=== PATIENT | female | born 1950 | race Caucasian/White ===

== ENCOUNTER 2024-04-27 09:50 | Inpatient (IN) | payer MEDICARE, OTHER ==
[~2024-04-27] VITALS: Ht 177.8 cm
[2024-04-27] VITALS (10 sets, daily range): BP systolic 100–134; BP diastolic 70–90
[2024-04-27] MEDS ORDERED: ASPIRIN 81 MG CHEW PO ONE (10:15)
[2024-04-27 10:21] LABS: BASOPHILS 0.4 % (0-2); EOSINOPHILS 0.6 % (0-6); HEMATOCRIT 40.7 % (35.0-50.0); HEMOGLOBIN 13.4 g/dL (12.0-18.0); LYMPHOCYTES 16.2 % (24-44); MCH 27.8 (27-36); MCHC 32.8 g/dl (30-36); MCV 84.6 fl (81-99); MONOCYTES 7.7 % (0-12); NEUTROPHILS 75.1 % (39-80); PLATELET COUNT 183 K/uL (140-440); RBC 4.81 M/ul (4.3-5.7); RDW 15.2 (10.5-15.0)
[2024-04-27 10:44] LABS: ALBUMIN/GLOBULIN RATIO 0.7 (1.1-2.4); ANION GAP 16.1 (7-21); BILIRUBIN, TOTAL 0.7 ng/dL (0.2-1.0); BUN/CREATININE RATIO 14.86 (6.0-28.6); CALCIUM 9.6 mg/dL (8.5-10.1); CREATININE, SERUM 1.48 mg/dL (0.55-1.02); POTASSIUM 4.1 mmol/L (3.5-5.1); PROTEIN, TOTAL 7.3 g/dL (6.4-8.2)
[2024-04-27] MEDS ORDERED: FUROSEMIDE 20 MG/2 ML VIAL IV ONE (11:45)
[2024-04-27 13:32] LABS: INR 1.08 (0.80-1.30); PARTIAL THROMBOPLASTIN TIME 39.2 Sec (22.9-41.3); PROTIME 13.3 Sec (11.2-14.2)
[2024-04-27] MEDS ORDERED: HEParin SOD (PORCINE) 5,000 UNIT/ML SYR IV ONE (14:00)
[2024-04-27] MEDS ORDERED: HEParin SOD (PORCINE) 5,000 UNIT/ML SYR IV PRN ×3 (14:00)
[2024-04-27] MEDS ORDERED: HEPARIN SOD,PORK IN 0.45% NACL 500 ML IV SCH (14:00)
[2024-04-27] MEDS ORDERED: ACETAMINOPHEN 325 MG TAB PO PRN (14:45)
[2024-04-27] MEDS ORDERED: MAGNESIUM HYDROXIDE/AL HYDROX 30 ML CUP PO PRN (14:45)
[2024-04-27] MEDS ORDERED: ondansetron HCL 4 MG/2 ML VIAL IV PRN (14:45)
--- NOTE | 2024-04-27 15:00 | NUR ---
PT ARRIVED FROM ED VIA STREACHER, TRANSFERED SELFED TO BED FROM [facility], WILL BE BACK LATER.
[2024-04-27] MEDS ORDERED: TUMS200 MG PO (15:17)
--- NOTE | 2024-04-27 16:21 | NUR ---
PT UP TO THE BATHROOM, VOIDED AND WAS SOB WITH ACTIVITY BUT SPO2 REMAINED IN THE 95%, BUT HR WENT UP TO THE 100'S. BACK TO BED AND CALL LIGHT IN REACH, SIDE RAILS UP TIMES 3
--- NOTE | 2024-04-27 19:30 | NUR ---
RECEIV ED REPORT FROM DAY SHIFT RNSun EUGENE IS RESTING IN BED WATCHING TV. PATIENT DENIES ANY NEEDS. CALL LIGHT IN REACH.
[2024-04-27] MEDS ORDERED: CALCIUM CARBONATE 500 MG CHEW PO PRN (20:45)
--- NOTE | 2024-04-27 20:52 | NUR ---
PATIENT IS RESTING IN BED WATCHING TV. PATIENT DENIES ANY PAIN OR SOB. PATIENT ASSESMENT COMPLETED. PATIENT REPORTS "HEARTBURN FROM THE [place]OM[place]O SOUP", PRN MEDICATION GIVEN PER ORDER. PATIENT IS ON RA. PATIENT DENIES ANY FURTHER NEEDS. CALL LIGHT IN REACH. IV INFUSING PER ORDER. LAB IN ROOM TO DRAW BLOOD.
--- NOTE | 2024-04-27 21:32 | NUR ---
RECEIVED CALL FROM LAB WITH INCREASED PTT TIME. PATIENTS DRIP STOPPED PER PROTOCOL. PATIENT IS RESTING IN BED WATCHING TV. PATIENT DENIES ANY PAIN OR SOB. PATIENT DENIES ANY NEEDS CALL LIGHT IN REACH.
--- NOTE | 2024-04-27 22:47 | NUR ---
PATIENTS IV HEP DRIP RESTARTED PER PROTOCOL. PATIENT IS RESTING IN BED AND DENIES ANY NEEDS. CALL LIGHT IN REACH.
[2024-04-28] VITALS (17 sets, daily range): BP systolic 108–136; BP diastolic 50–90
--- NOTE | 2024-04-28 00:01 | NUR ---
PATIENT ASSISTED TO REPOSITION IN BED. PATIENT DENIES ANY PAIN OR SOB. PATIENT DENIES ANY NEEDS. PATIENT DENIES ANY PAIN OR SOB. CALL LIGHT IN REACH.
--- NOTE | 2024-04-28 01:25 | NUR ---
PATIENT ASSISTED TO THE BR A SBA. PATIENT ABLE TO VOID. PATIENT IS BACK IN BED RESTING. PATIENT DENIES ANY SOB OR PAIN. PATIENT IS BACK IN BED RESTING. NO FURTHER NEEDS NOTED. CALL LIGHT IN REACH.
--- NOTE | 2024-04-28 03:19 | NUR ---
PATIENT IS RESTING IN BED WITH EYES CLOSED, RR 21. CALL LIGHT IN REACH. NAD NOTED. IV INFUSING PER ORDER.
--- NOTE | 2024-04-28 04:35 | NUR ---
LAB IN ROOM. PATIENT IS RESTING IN BED. PATIENT DENIES ANY PAIN OR SOB. PATIENTS ASSEMENT COMPLETED. PATIENT REMAINS ON RA. PATIENT DENIES ANY FURTHER NEEDS. CALL LIGHT IN REACH. HEPARIN INFUSING PER ORDER.
[2024-04-28 04:51] LABS: BASOPHILS 0.6 % (0-2); EOSINOPHILS 0.9 % (0-6); HEMATOCRIT 38.5 % (35.0-50.0); HEMOGLOBIN 12.7 g/dL (12.0-18.0); LYMPHOCYTES 24.6 % (24-44); MCH 27.6 (27-36); MCHC 33.1 g/dl (30-36); MCV 83.4 fl (81-99); NEUTROPHILS 64.9 % (39-80); PLATELET COUNT 169 K/uL (140-440); RBC 4.62 M/ul (4.3-5.7); RDW 15.2 (10.5-15.0)
[2024-04-28 05:08] LABS: ANION GAP 14.1 (7-21); BUN/CREATININE RATIO 16.4 (6.0-28.6); CALCIUM 8.9 mg/dL (8.5-10.1); CREATININE, SERUM 1.28 mg/dL (0.55-1.02); POTASSIUM 4.1 mmol/L (3.5-5.1)
--- NOTE | 2024-04-28 05:12 | NUR ---
PATIENTS PTT BACK AND NO ADJUSMENTS MADE TO HEPARIN INFUSION PER ORDER.
--- NOTE | 2024-04-28 06:26 | NUR ---
PATIENT IS RESTING IN BED WITH EYES CLOSED, RR 22. NAD NOTED. CALL LIGHT IN REACH. IV INFUSING PER ORDER.
--- NOTE | 2024-04-28 06:48 | NUR ---
UR CLINICAL REVIEW: 2MN [facility]- [facility] INPT FOR PE WITH CARDIAC STRAIN MEDICARE INPT 04/27/24 @ 1437 ORDER MATCHES REG NO AUTH REQUIRED PER MEDICARE RULES PLAN TO DC TO HOME WHEN MEDICALLY STABLE.
[2024-04-28] MEDS ORDERED: CALCIUM CARBONATE 500 MG CHEW PO SCH (08:00)
[2024-04-28] MEDS ORDERED: APIXABAN 5 MG TAB PO SCH (09:50)
--- NOTE | 2024-04-28 10:41 | NUR ---
into see pt transfer orders received. Heprin drip turned off, eliqus 5mg started po at this time. pt up in the chair and family into visit. pt placed on tele #4
--- NOTE | 2024-04-28 10:53 | NUR ---
PT TRASNFERED TO M/S RM 110 VIA CHAIR, ALL PERSONAL BELONGINGS TAKEN WITH PT AND HER FAMILY. REPORT GIVEN AND ALL QUESTIONS ANSWERED.
--- NOTE | 2024-04-28 10:55 | NUR ---
PATIENT TO MED SURG VIA CHAIR. PATIENT IS ON ROOM AIR, 100% VITALS ARE STABLE. AND SON ARE IN ROOM. TELE #6 IS ON, NSR WITH HR 88-90. PATIENT DENIES PAIN, DENIES NAUSEA. NO OTHER NEEDS AT THIS TIME.
--- NOTE | 2024-04-28 10:58 | NUR ---
PT IS ON TELE # 6 AND NOT 4
--- NOTE | 2024-04-28 11:51 | NUR ---
PT ARRIVED FROM CCU, REPORT RECEIVED FROM CHARGE NURSE. PT SITTING UP IN CHAIR. PT C/O DULL PAIN TO (L) CALF, PLACED LEG ON PILLOW TO PROVIDE MORE COMFORT THE CHAIR WAS SLIGHTLY HARD AND DISCOMFORTING FOR PATIENT. OTHERWISE, PATIENT DENIES ANY NEEDS. FAMILY PRESENT AT BEDSIDE. DENIES SOB WHILE AT REST, DOES EXPRESS SHE GETS SHORT OF BREATH WITH EXERTION TOWARDS THE END OF ACTIVITY. PT REQUESTING TO USE BATHROOM, STEADY ON HER FEET. ALLOWED TO MOVE INDEPENDENTLY IN THE ROOM. CALL LIGHT WITHIN REACH, DENIES FURTHER NEEDS AT THIS TIME.
[2024-04-28] MEDS ORDERED: PHARMACY RENAL DOSE ADJUSTMENT 1 DOSE MISC PO SCH (12:00)
--- NOTE | 2024-04-28 13:39 | NUR ---
PT RESTING IN BED, WATCHING TV. VS STABLE. PT C/O HEARTBURN, PRN TUMS GIVEN - SEE MAR. PT DENIES ANY OTHER NEEDS AT THIS TIME, CALL LIGHT WITHIN REACH.
--- NOTE | 2024-04-28 15:51 | NUR ---
PT RESTING IN BED, WATCHING TV. FAMILY JUST ARRIVED AT BEDSIDE. PT STATES SHE THOUGHT SHE WAS GOING TO HAVE BM, JUST PASSING FLATUS. OFFERED MIRALAX TO HELP WITH BM, SHE DECLINED AT THIS TIME AND WILL ASK LATER IF UNSUCCESSFUL ATTEMPTS. DENIES ANY FURTHER NEEDS AT THIS TIME. CALL LIGHT WITHIN REACH.
--- NOTE | 2024-04-28 17:05 | NUR ---
REPORT REC'D FROM DANIEL CHEATHAM. PT RESTING COMFORTABLY IN BED, FAMILY AT BEDSIDE. TELE # 6 IN USE, SR 90'S. SIDERAILS UP X 2, CALL LEONE IN REACH, BED LOW POSITION AND LOCKED. PT INSTRUCTED TO CALL FOR ASSISTANCE PRN.
--- NOTE | 2024-04-28 18:35 | NUR ---
PATIENT IN BED WATCHING TV AT THIS TIME. VITALS AND I&O'S DONE AND CHARTED. CALL LIGHT IN REACH. NO FURTHER NEEDS AT THIS TIME.
--- NOTE | 2024-04-28 18:57 | NUR ---
PT RESTING T/O SHIFT. NO C/O VOICED. REPORT GIVEN TO YVONNE.
--- NOTE | 2024-04-28 19:22 | NUR ---
Received report from DANIEL Moss. Pt sitting at EOB, denies any further needs at this time.
[2024-04-28] MEDS ORDERED: CALCIUM CARBONATE 500 MG CHEW PO PRN ×2 (19:45→20:30)
--- NOTE | 2024-04-28 20:00 | NUR ---
PT SITTING EOB. VSS. DENIES PAIN. CALLS APPROPRIATELY FOR ASSIST. LSC, DENIES SOB BUT SOME LEMA WHEN GETTING TO EOB. ON RA. HRR, TELE IN PLACE. BTA. PT C/O HEARTBURN-PRN TUMS ADMINISTERED PER EMAR. LBM 04/27. VOIDS WNL. LLE W/ MIMIMAL PAIN REPORTED W/ DORSIFLEXION. NO EDEMA. NO N/T. LAC SL WNL. FRESH ICE WATER PROVIDED. CALL LIGHT WITHIN REACH.
--- NOTE | 2024-04-28 21:03 | NUR ---
pt UP TO THE BR VIA SBA. pt BACK TO BED WITH LIGHTS OFF. pt DENIES ANY OTHER NEEDS AT THIS TIME. CALL LIGHT WITHIN REACH.
--- NOTE | 2024-04-28 23:17 | NUR ---
PT SLEEPING SOUNDLY ON LEFT SIDE. APPEARS COMFORTABLE.
[2024-04-29] VITALS (10 sets, daily range): BP systolic 97–146; BP diastolic 55–91
--- NOTE | 2024-04-29 01:15 | NUR ---
PT SLEEPING SOUNDLY. APPEARS COMFORTABLE.
--- NOTE | 2024-04-29 02:59 | NUR ---
PT AWAKE, SLEEPING BETWEEN CARES. DENIES NEEDS.
--- NOTE | 2024-04-29 05:30 | NUR ---
[employer] OBTAINED VITALS AND I&O. PT STATES NO NEEDS AT THIS TIME. CALL LIGHT WITHIN REACH.
--- NOTE | 2024-04-29 06:16 | NUR ---
PT ASSISTED TO BR, SBA. FRESH ICE WATER PROVIDED. NO FURTHER NEEDS.
--- NOTE | 2024-04-29 08:27 | NUR ---
ALERT AND ORIENTED IN RECLINER, EATING BREAKFAST. STATES SHE LIVES IN SINGLE LEVEL HOME WITH HER , TANA. STEPS TO GET INSIDE, BUT STEPS IN HER GARAGE HAVE A HAND RAIL. SHE STATES SHE HAS NO DME AT HOME. SHE IS ABLE TO DRIVE WITHOUT ISSUES. STATES SHE HAS NO FINANCIAL CONCERNS. SHE HAS NO CM NEEDS AT THIS TIME. SHE IS PLANNING TO RETURN HOME WHEN MEDICALLY STABLE.
--- NOTE | 2024-04-29 08:30 | NUR ---
PT RESTING IN BED, BREAKFAST TRAY DELIVERED. PT INDEPENDENT GETTING OUT OF BED AND UP IN CHAIR. DENIES NEED TO USE BATHROOM AT THIS TIME. TRAY SETUP AND PT EATING. ELIQUIS GIVEN THIS MORNING - SEE JUL. DENIES SOB WHILE RESTING, INCREASED SOB WITH EXERTION BUT NO SIGNIFICANT AND PT STATES IT IS FEELING BETTER EACH DAY. CALL LIGHT WITHIN REACH, PT REQUESTING EDUCATION ON ELIQUIS AND FOODS TO AVOID, WELL MEDICATION INTERACTIONS. WILL FOLLOW-UP WITH PHARMACY. NO FURTHER NEEDS AT THIS TIME. PT LEFT UP IN CHAIR TO EAT BREAKFAST.
--- NOTE | 2024-04-29 11:16 | NUR ---
PT IS IN THE ROOM, FAMILY PRESENT AT BEDSIDE. DENIES ANY NEEDS AT THIS TIME, CALL LIGHT WITHIN REACH.
--- NOTE | 2024-04-29 18:07 | NUR ---
PT WAS UP WITH CAREGIVERS SHE STATES, AMBULATED THE HALLWAY DOWN/BACK, WHE SHE GOT BACK TO HER ROOM SHE WAS SURPRISED SHE WAS NOT TOO SOB. SITTING ON EDGE OF BED AT THIS TIME, HAVING DINNER. DENIES PAIN. FRESH ICE WATER PROVIDED. DENIES ANY FURTHER NEEDS. CALL LIGHT WITHIN REACH.
--- NOTE | 2024-04-29 19:32 | NUR ---
Report received from DANIEL Mcdonough. Pt sitting EOB, reports the start of some heartburn. Pt states she will call if PRN Tums are needed.
--- NOTE | 2024-04-29 20:00 | NUR ---
PT SITTING EOB, STILL W/ C/O HEARTBURN. PRN TUMS GIVEN PER EMAR. VS OBTAINED. DENIES PAIN. LSC, DIM TO RIGHT BASE. DENIES SOB AT REST BUT ENDORSES LEMA. HRR. TELEMETRY IN PLACE. 1+ BLE EDEMA. MINIMAL CALF PAIN W/ LLE DORSIFLEXION. BTA. LBM 04/29. VOIDS WNL. AMBULATES TO BR W/ SBA, GAIT STEADY. CALLS APPROPRIATELY FOR ASSIST. SUNG MORRIS WNL.
--- NOTE | 2024-04-29 20:56 | NUR ---
call light answered, pt up to void in bathroom. voided 200mls and back in bed. call light in reach.
--- NOTE | 2024-04-29 22:28 | NUR ---
PT SLEEPING SOUNDLY, APPEARS COMFORTABLE. CALL LIGHT WITHIN REACH.
--- NOTE | 2024-04-30 01:02 | NUR ---
PT APPEARS ASLEEP ON LEFT SIDE. CALL LIGHT WITHIN REACH.
[2024-04-30 01:31] VITALS: BP 123/73
--- NOTE | 2024-04-30 01:32 | NUR ---
MEDICAL ORDERLY OBTAINED VITALS AND I&O. PT STATES NO NEEDS AT THIS TIME. CALL LIGHT WITHIN REACH.
[2024-04-30 02:00] VITALS: BP 123/73
--- NOTE | 2024-04-30 02:38 | NUR ---
PT SLEEPING SOUNDLY, APPEARS COMFORTABLE. CALL LIGHT WITHIN REACH.
--- NOTE | 2024-04-30 04:20 | NUR ---
PT SLEEPING SOUNDLY. CALL LIGHT WITHIN REACH.
[2024-04-30 05:16] VITALS: BP 117/69
[2024-04-30 05:29] VITALS: BP 117/69
--- NOTE | 2024-04-30 05:58 | NUR ---
PT AWAKE, STATES SLEPT WELL OVERNIGHT. FRESH ICE WATER PROVIDED. CALL LIGHT WITHIN REACH.
[2024-04-30] MEDS ORDERED: ELIQUIS5 M1 PO (07:56)
--- NOTE | 2024-04-30 08:02 | NUR ---
PT SITTING UP ON EDGE OF BED, DENIES SOB AT THIS TIME. MEDICATIONS GIVEN - SEE MAR. PT FEELING GREAT, DC TELEMETRY THIS MORNING, IV SITE REMOVED. PT ORDERED BREAKFAST, STATES WILL BE HERE AROUND 9-9:30 FOR DISCHARGE. ALL PT CARE NEEDS MET, CALL LIGHT WITHIN REACH. DENIES ANY FURTHER NEEDS AT THIS TIME.
[2024-04-30 08:49] VITALS: BP 139/75
--- NOTE | 2024-04-30 09:23 | NUR ---
UP IN RECLINER. DISCUSSED DC TO HOME TODAY. DENIES CM NEEDS AGAIN. IMM LETTER DISCUSSED WITH PATIENT.
--- NOTE | 2024-04-30 12:05 | EKG ---
[facility] [address] [facility] [place] [address] Signed Sinus tachycardia RSR' or QR pattern in V1 suggests right ventricular conduction delay Inferior infarct , age undetermined T wave abnormality, consider anterior ischemia Abnormal ECG No previous ECGs available Confirmed by Genevieve Solis MD ([id number]) on 04/30/2024 12:05:12 PM Electronically Signed By: GENEVIEVE SOLIS 04/30/24 1205 PATIENT NAME: BLAS MANN Electrocardiogram DATE OF : 48 PHYSICIAN: GENEVIEVE SOLIS REPORT #: [id number] REPORT IS CONFIDENTIAL AND NOT TO BE RELEASED WITHOUT AUTHORIZATION
== END 2024-04-30 09:32 | disposition home or self-care (01) | DRG 299 ==
LOC: ED 09:50 → MS 14:38 → CCU 14:38 → ED 14:52 → MS 04-28 10:45
PROVIDERS: Emergency Medicine; ADMIT Internal Medicine; ATTEND Internal Medicine
DX: I82.432 Acute embolism and thrombosis of left popliteal vein (principal); I26.99 Other pulmonary embolism without acute cor pulmonale; J96.01 Acute respiratory failure with hypoxia; I82.442 Acute embolism and thrombosis of left tibial vein; Z87.891 Personal history of nicotine dependence; Z79.01 Long term (current) use of anticoagulants
CPT/HCPCS: 36415; 71045; 71260; 80048; 80053; 83735; 83880; 84484; 85025; 85379; 85610; 85730; 93005; 93010; 93306; 93971; A9270; J1644; J1940; Q9967

== ENCOUNTER 2024-12-02 10:40 | Day surgery (SDC) | payer MEDICARE, OTHER ==
[2024-11-24 09:58] VITALS: BP 139/79
[~2024-12-02] VITALS: Ht 177.8 cm; Wt 117.0 kg
--- NOTE | ~2024-12-02 | OR ---
[facility] [address] [facility] [place] [address] Draft DATE OF OPERATION: 12/02/2024 SURGEON: Jennifer Roe DO PREOPERATIVE DIAGNOSIS: Colon cancer screening. POSTOPERATIVE DIAGNOSIS: Colon cancer screening with sigmoid diverticulosis and nonspecific colitis. PROCEDURE PERFORMED: Colonoscopy. ANESTHESIA: IV sedation. ESTIMATED BLOOD LOSS: None. DRAINS: None. COMPLICATIONS: None. DESCRIPTION OF THE PROCEDURE: The patient was brought to the operating room, placed in supine position. After induction of IV sedation, the patient was placed in left lateral position and padded to the satisfaction of anesthesia. The Olympus video colonoscope was then introduced through the anus and moving forward through the colon to the rectosigmoid, sigmoid colon, descending colon, transverse colon, into the cecum and ascending colon. The colon was then insufflated, and the inspection of the mucosal surfaces was carried out. The cecum and ascending colon had no lesions or ulcerations appreciated. No intrinsic or extrinsic masses noted. The scope was then brought back into the transverse colon. No intrinsic or extrinsic masses, lesions, or ulcerations was noted. There was some diverticulum present, some in the transverse colon. Scope was brought back to the descending colon. No intrinsic or extrinsic masses, lesions, or ulcerations were appreciated except for some mild nonspecific colitis and some diverticulum. The scope was then brought back into the sigmoid colon, and some nonspecific colitis and diverticulosis were noted, but no intrinsic or extrinsic masses, no other lesions or PATIENT NAME: BLAS MAN OPERATIVE REPORT DATE OF : 48 REPORT #: [id number] PHYSICIAN: JENNIFER ROE DO PCP: ELVIN DAVIS MD REPORT IS CONFIDENTIAL AND NOT TO BE RELEASED WITHOUT AUTHORIZATION [address] [place] [address] Draft ulcerations were noted. Rectosigmoid was unremarkable. Scope was then withdrawn. The patient tolerated the procedure well, taken to recovery room in satisfactory condition. DO GRECIA Rogers/SALONI /[id number] Copies: ~ PATIENT NAME: BLAS MAN OPERATIVE REPORT DATE OF : 48 REPORT #: [id number] PHYSICIAN: JENNIFER ROE DO PCP: ELVIN DAVIS MD REPORT IS CONFIDENTIAL AND NOT TO BE RELEASED WITHOUT AUTHORIZATION
[~2024-12-02 10:40] MED LIST: ELIQUIS2.5 MG PO; ELIQUIS5 M1 PO; IBLOOD GLUCOSE TEST STRIP 1 EA TEST VI PRN; LACTATED RINGER'S 1,000 ML IV SCH; LIDOCAINE HCL 1% 5 ML SDV INJ ONE; TUMS200 MG PO
[2024-12-02 10:50] VITALS: BP 153/83
[2024-12-02] MEDS ORDERED: FLUCONAZOLE100 MG PO (10:52)
[2024-12-02] MEDS ORDERED: NYSTATIN15 G2 TOP (10:52)
[2024-12-02] MEDS ORDERED: LIDOCAINE HCL 2% 5 ML SDV ONE (11:32)
--- NOTE | 2024-12-02 12:58 | NUR ---
12/02/24 Tara Garcia 1249-PT ARRIVES TO PACU, VIA STRETCHER, RESTING ON LT SIDE, PT NOT RESPONISVE TO TACTILE OR VERBAL STIMULI, RESTING W/ EYES CLOSED, VSS ON 6L VIA MASK, RR EVEN AND UNLABORED.
[2024-12-02 13:18] VITALS: BP 106/92
== END 2024-12-02 13:35 | disposition home or self-care (01) ==
LOC: DS 10:40
PROVIDERS: ATTEND Surgery
PROC: 0DJD8ZZ Inspection of Lower Intestinal Tract, Via Natural or Artificial Opening Endoscopic (ICD-10-PCS; principal; 2024-12-02 12:15)
DX: Z12.11 Encounter for screening for malignant neoplasm of colon (principal); K57.30 Diverticulosis of large intestine without perforation or abscess without bleeding; K52.9 Noninfective gastroenteritis and colitis, unspecified; Z86.711 Personal history of pulmonary embolism; Z86.718 Personal history of other venous thrombosis and embolism; Z79.01 Long term (current) use of anticoagulants
CPT/HCPCS: 00812; J2003; J2704; J7121